=== PATIENT | male | born 1980 | race Caucasian/White ===

== ENCOUNTER 2020-12-25 14:04 | Inpatient (IN) | payer BC, SELFPAY ==
[2020-12-25] VITALS (18 sets, daily range): BP systolic 92–125; BP diastolic 60–79; PULSE 51–88; RESP 18–20; TEMP 36.6–36.7; O2SAT 95–100; BMI 23.9
--- NOTE | ~2020-12-25 | CT_ITS ---
EXAMINATION: CT brain wo con DATE: 12/25/2020 15:59 INDICATION: Altered mental status. Unresponsive. TECHNIQUE: Computed tomography (CT) of the head was performed without intravenous contrast. The mA wa s adjusted according to patient size. Iterative reconstruction technique was employed. The dose-lengt h product was 605.33 mGy-cm. COMPARISON: Head CT 12/22/2014 FINDINGS: There is no intracranial hemorrhage, acute infarction, or abnormal intracranial mass lesion . The ventricles are normal in size. The orbits are normal. There is mild mucosal thickening in the p aranasal sinuses. The mastoid air cells are normal. IMPRESSION: 1. Normal brain. Reviewed, dictated and finalized at location A. IMPRESSION: 1. Normal brain.
--- NOTE | ~2020-12-25 | XR_ITS ---
EXAMINATION: XR chest 1V portable EXAM DATE: 12/29/2020 15:42 INDICATION: Pneumonia. TECHNIQUE: Portable AP frontal chest x-ray was obtained. Comparison is made to prior examination from 12/28/2020. FINDINGS: Patient has been extubated. The lungs are clear. There are no pleural effusions. The card iomediastinal silhouette is within normal limits. There is no pneumothorax suspected. The bones and soft tissues are unremarkable. IMPRESSION: No acute cardiopulmonary findings. Reviewed, dictated and finalized at location B.
--- NOTE | ~2020-12-25 | XR_ITS ---
EXAMINATION: XR chest 1V portable INDICATION: Respiratory failure TECHNIQUE: Portable AP chest at 0523 hours COMPARISON: 12/27/2020 FINDINGS: The endotracheal tube ends approximately 7.0 cm above the chris. The nasogastric tube is f ollowed as far as the stomach. Its tip is beyond the inferior margin of the radiograph. Right basilar airspace opacities persist without significant change. There is no pleural effusion or pneumothorax. The cardiomediastinal silhouette is normal. IMPRESSION: 1. Unchanged right basilar airspace opacity, consistent with atelectasis versus pneumonia. 2. Endotracheal tube unchanged in position near the thoracic inlet. Reviewed, dictated and finalized at location A.
--- NOTE | ~2020-12-25 | CT_ITS ---
EXAMINATION: CT brain wo con DATE: 12/27/2020 14:28 INDICATION: Confusion TECHNIQUE: Computed tomography (CT) of the head was performed without intravenous contrast. Sagittal and coronal reconstructions were performed. The mA was adjusted according to patient size. Iterative reconstruction technique was employed. The dose-length product was 681.00 mGy-cm. COMPARISON: head CT dated 12/25/2020 FINDINGS: No acute intracranial hemorrhage, acute infarction or abnormal extra axial fluid collection. Ventricl es are normal and symmetric. No mass/mass effect. Course of the orogastric tube and endotracheal tube are seen extending across the oral cavity. Mucous retention cyst in the left maxillary sinus. The or bits and mastoid air cells are normal. IMPRESSION: 1. No acute intracranial process. Reviewed, dictated and finalized at location A.
--- NOTE | ~2020-12-25 | XR_ITS ---
EXAMINATION: XR abdomen NG/feed tube insert DATE: 12/25/2020 14:32 INDICATION: Orogastric tube placement. TECHNIQUE: A supine view of the abdomen was obtained. COMPARISON: None. FINDINGS: The lower abdomen is excluded. There are no dilated loops of bowel. The nasogastric tube ti p is in the stomach. IMPRESSION: 1. Nasogastric tube tip in the stomach. Reviewed, dictated and finalized at location A.
--- NOTE | ~2020-12-25 | XR_ITS ---
EXAMINATION: XR chest 1V portable DATE: 12/27/2020 05:54 INDICATION: Respiratory failure TECHNIQUE: frontal view of the chest was obtained. COMPARISON: Chest radiograph dated 12/25/2020 FINDINGS: Endotracheal tube tip at the thoracic inlet 8.6 cm above the chris. Nasogastric tube extends below the left hemidiaphragm with distal tip collimated off the study. Mild elevation of the right hemidiaphragm. Airspace opacity at the right lower lung zone. No pleural effusion or pneumothorax. The cardiomediastinal silhouette is normal. IMPRESSION: 1. Endotracheal tube tip at the thoracic inlet 8.6 cm above the chris. Recommend advancement by 6 cm . 2. Airspace opacity in the right lower lung zone which could represent atelectasis and/or pneumonia. Reviewed, dictated and finalized at location A. IMPRESSION: 1. Endotracheal tube tip at the thoracic inlet 8.6 cm above the chris. Recomme nd advancement by 6 cm. 2. Airspace opacity in the right lower lung zone which could represent atelecta sis and/or pneumonia.
--- NOTE | ~2020-12-25 | XR_ITS ---
EXAMINATION: XR chest ET placement DATE: 12/25/2020 14:32 INDICATION: Intubation. TECHNIQUE: A single frontal view of the chest was obtained. COMPARISON: None. FINDINGS: There is mild atelectasis in right lower lung zone. No pleural effusion or pneumothorax. Th e heart size is normal. The endotracheal tube tip is 5.5 cm above the chris. The nasogastric tube ti p is beyond the inferior margin of the radiograph, but at least to the stomach. IMPRESSION: 1. Mild atelectasis in right lower lung zone. Reviewed, dictated and finalized at location A.
--- NOTE | 2020-12-25 14:25 | PC.NURSE ---
Addendum entered by Zayra Minaya RN 12/25/20 15:13: Patient intubation tube marked at 24 Original Note: Etomidate given at 1412 Succ given at 1413 Patient intubated at 1416, measurement marked at 22.
--- NOTE | 2020-12-25 14:31 | ECG_ITS ---
Measurements Intervals [place] Rate: 75 P: 64 MI: 134 QRS: 19 QRSD: 95 T: 34 QT: 381 QTc: 426 Interpretive Statements SINUS RHYTHM WITH SINUS ARRHYTHMIA ATRIAL PREMATURE COMPLEX POSSIBLE LEFT ATRIAL ENLARGEMENT INCOMPLETE RIGHT BUNDLE BRANCH BLOCK BASELINE ARTIFACT- V3-V6 BORDERLINE ECG Electronically Signed On 12-25-2020 14:52:34 CDT by Lucas Agee D.O.
--- NOTE | 2020-12-25 14:32 | ED.OVERDOSE ---
HPI - Overdose General Chief Complaint: Overdose Stated Complaint: unresponsive Time Seen by Provider: 12/25/20 14:16 Source: EMS Mode of arrival: EMS Limitations: clinical condition History of Present Illness HPI Narrative: Patient is a 40-year-old male brought in by EMS after being found unresponsive. Patient was given Narcan 4 mg IV x1 and intranasal Narcan 2 mg x 1 to no effect according to EMS. Blood sugar was in the 140s per EMS. According to the patient was last seen working on his car around 10 AM, she came back to the garage and found him unresponsive at 1 PM. states that he had a similar episode 5 years ago when his dad , and claims that he has been feeling depressed this past week since it is the 5-year anniversary of his dad's . Related Data Allergies Allergy/AdvReac Type Severity Reaction Status Date / Time No Known Allergies Allergy Unknown Unverified 07/01/17 20:49 Review of Systems Review of Systems: All systems reviewed & are unremarkable except as noted in HPI and below ROS unobtainable: Yes unobtainable due to medical condition and unobtainable due to mental status [facility] Family History Family History Father Family history of lung cancer Mother Family history of malignant neoplasm of ovary Social History Social History Smoking status: Current every day smoker Smoking end date: 09/29/13 Alcohol intake: never Comments Past medical history: Depression, anxiety Exam Const: Other: Unresponsive HENMT: Head: normal to inspection, normocephalic and atraumatic Ears: hearing grossly normal bilaterally, TM normal on the right and TM normal on the left General nose exam: Normal external nose present, Normal nares present and No nasal discharge present Face and sinus: normal facial exam Mouth: Yes Normal oral and palatal mucosa present, Yes lip normal, Yes tongue normal and Yes oropharynx normal Throat: posterior oropharynx normal, tonsils normal and uvula midline Eyes: General: appearance normal, both eyes and all related structures Pupils: Equal, round and reactive pupils present Neck: Neck: normal visual inspection Chest: Chest palpation & inspection: normal inspection of the chest Resp: Other: Agonal respiration Cardio: Rate: regular rate Rhythm: regular rhythm GI: Inspection: normal to inspection GI Palp: No Rigid due to palpation Auscultation: normal bowel sounds : General: Yes no CVA tenderness Skin: General skin exam: normal color, no rashes or lesions noted, elasticity normal and turgor normal Neuro: Other: Unresponsive Extrem: General: normal to inspection and capillary refill normal Course Vital Signs Vital signs: Vital Signs Temperature 36.6 C 12/25/20 14:04 Pulse Rate 79 12/25/20 14:04 Respiratory Rate 18 12/25/20 14:04 Blood Pressure 125/79 12/25/20 14:04 Pulse Oximetry 99 12/25/20 14:04 Temperature 36.6 C 12/25/20 14:04 Pulse Rate 55 L 12/25/20 17:13 Respiratory Rate 20 12/25/20 17:13 Blood Pressure 105/73 12/25/20 17:13 Pulse Oximetry 100 12/25/20 17:13 Procedures Intubation Intubation #1: Intubation Date: 12/25/20 Intubation Time: 17:40 Time out performed: Yes sedative: Etomidate Mg Given: 20 paralytic: Succinylcholine Mg Given: 120 Laryngoscope: fiber optic video scope Tube Size (cm): 8.0 Method of Intubation: orotracheal Number of Attempts: 1 Tube Secured Depth (cm): 22 Tube Secured Location: teeth Tube Placement Confirmation: visualized tube passing through cords Patient Tolerated Procedure: well Intubation Complications: none MDM - Overdose MDM Narrative Medical decision making narrative: I reviewed his labs EKG and CT head. CBC shows elevated white count 17.1 this is due to s
[2020-12-25 14:43] LABS: Alveolar/Arterial O2 Gradient 457.3 mmHg; Arterial Blood Gas PEEP 5 cmH2O; Arterial Blood Gas Tidal Volume 470 ml; Arterial Blood Gas Vent Mode CMV; Arterial Blood Gas Ventilator rate 20 /MIN; Base Excess ABG -3.5 mEq/l (+/-2.0); Device VENTILATOR; Fractional Inspired Oxygen 100 %; HCO3 ABG 21.9 mEq/l (22.0-26.0); Modified Allen's Test Pass; Oxygen Content ABG 21.6 %vol (16.0-22.0); Oxygen Saturation ABG 99.4 % (95.0-100.0); Oxyhemoglobin 95.3 % THb (90.0-100.0); PCO2 ABG 40.9 mmHg (35.0-45.0); PO2 ABG 214.8 mmHg (80.0-100.0); PO2 FiO2 Ratio Arterial Blood 2.15 %; Site Drawn RIGHT RADIAL; Total Hemoglobin 15.8 g/dL (12.0-18.0); pH ABG 7.347 (7.350-7.450)
[2020-12-25 14:53] LABS: Basophils Percent Auto 0.2 % (0.2-1.2); Hematocrit 46.9 % (42.0-52.0); Hemoglobin 15.6 g/dL (14.0-18.0); Immature Granulocyte Absolute 0.08 K/mm3 (0.00-0.031); Immature Granulocyte Percent A 0.5 % (0-0.5); Lymphocytes Absolute Auto 0.77 K/mm3 (0.9-3.2); Lymphocytes Percent Auto 4.5 % (18.3-44.2); Mean Corpuscular HGB Conc 33.3 g/dl (32-36); Mean Corpuscular Hemoglobin 31.3 pg (26-34); Mean Corpuscular Volume 94.2 fl (80-100); Mean Platelet Volume 9.6 fl (7.4-10.4); Monocytes Absolute Auto 0.1 K/mm3 (0.1-0.6); Monocytes Percent Auto 0.6 % (2.6-8.5); Neutrophils Absolute Auto 16.1 K/mm3 (1.3-6.7); Neutrophils Percent Auto 94.2 % (45.5-73.1); Platelet Count Result 230 k/mm3 (150-375); Red Blood Count 4.98 M/mm3 (4.6-6.20); Red Cell Distribution Width 13.2 % (11.5-14.5); White Blood Count 17.1 K/mm3 (4.5-10.0)
[2020-12-25 14:57] LABS: Add Urine Microscopic? YES; Appearance Urine Clear (Clear); Bilirubin Urine Negative (Negative); Blood Urine 1+ (Negative); Color Urine Yellow (Yellow); Glucose Urine UA Negative (Negative); Ketones Urine Negative (Negative); Leukocyte Esterase Ur Negative LEU/UL (Negative); Mucus Urine Rare /lpf; Nitrate Urine Negative (Negative); Protein Urine Negative (Negative); RBC Urine 0-2 /hpf (0-2); Specific Grav Ur 1.015 (1.001-1.035); Urobilinogen Urine Negative mg/dL (<2.0); WBC Urine 0-3 /hpf
[2020-12-25] MEDS: PROPOFOL IV EMULSION 100 ML 2.48 MG IV CONT (14:58)
[2020-12-25 15:06] LABS: Ethanol < 10 mg/dL (<10); Lactic Acid Reflex 1.6 mmol/L (0.7-2.1)
[2020-12-25 15:08] LABS: Alanine Aminotransferase 40 U/L (4-50); Albumin Level 4.1 g/dL (3.5-5.1); Alkaline Phosphatase 70 U/L (38-126); Anion Gap 5 mmol/L (8-16); Aspartate Amino Transferase 35 U/L (17-59); Bilirubin,Total 0.5 mg/dL (0.2-1.3); Blood Urea Nitrogen 13 mg/dL (9-20); Calcium 8.6 mg/dL (8.4-10.2); Carbon Dioxide 28 mmol/L (22-30); Chloride 107 mmol/L (98-107); Creatine Kinase 99 U/L (55-170); Estimated CRCL calculation 87 ml/min; Estimated Glomerular Filt Rate > 60; Glucose 126 mg/dL (65-110); Potassium 3.8 mmol/L (3.4-5.0); Sodium 140 mmol/L (137-145)
[2020-12-25 15:13] LABS: Amphetamine Screen Urine Negative (Negative); Barbiturate Screen Urine Negative (Negative); Benzodiazepines Screen Urine Positive (Negative); Cannabinoid Screen Urine Positive (Negative); Cocaine Screen Urine Negative (Negative); Methadone Screen Urine Negative (Negative); Opiate Screen Urine Positive (Negative); Phencyclidine Screen Urine Negative (Negative)
[2020-12-25 15:19] LABS: Troponin I < 0.012 ng/mL (0.000-0.034)
[2020-12-25] MEDS: SODIUM CHLORIDE 0.9% IV 1,000 ML 999 ML IV CONT (15:22)
[2020-12-25 15:34] LABS: Acetaminophen 44 ug/mL (10-30); Salicylate < 1.0 mg/dL (2-20)
--- NOTE | 2020-12-25 19:19 | PM.IMHP ---
H&P: HPI History of Present Illness Date/Time: 12/25/20 19:19 this is a 40-year-old male patient who was brought into the ER via EMS after being found unresponsive. The patient was given Narcan 4 mg IV x1 an intranasal Narcan 2 mg x 1 with no affect according to the EMS. His blood sugar was in the 140s per EMS. According to the the patient was last seen working on his car around 10:00 a.m. she came into the carotid found him unresponsive around 1:00 p.m.. The stated that the patient had a similar episode 5 years ago when the patient's father and claims that he has been feeling depressed this past week since is a 5 year anniversary of the the father's . His white count was noted to be 17.1. Arterial blood gases pH 7.347, at PO2 214.8, bicarb 21.9. It appears that these ABGs were taken when the patient was on a ventilator. The patient had been intubated and placed on a ventilator in the emergency room. Hydraulic Repairer was consulted from the emergency room and accepted the patient into the ICU. Tylenol level elevated to 44. The patient was started on IV fluids and sedation per ED. patient is being admitted to inpatient services on the date of service of 12/25/2020. Chief Complaint: Unresponsive Review of Systems Review of Systems: All systems reviewed & are unremarkable except as noted in HPI and below Constitutional: Constitutional: Reports as per HPI and Reports no additional constitutional complaints Eyes: Eyes: Reports as per HPI and Reports no additional eye complaints ENT: Reports system reviewed and no additional complaints, except as documented and Reports Normal hearing present Cardiovascular: Cardiovascular: Reports no additional cardiovascular complaints Respiratory: Respiratory: Reports no additional respiratory complaints and Reports no additional respiratory complaints Gastrointestinal: Gastrointestinal: Reports as per HPI and Reports no additional gastrointestinal complaints Musculoskeletal: Musculoskeletal: Reports no additional musculoskeletal complaints Integumentary/Breasts: Skin/Breast: Reports system reviewed and no additional complaints, except as docu and Reports as per HPI Neurologic: Reports system reviewed and no additional complaints, except as documented, Reports as per HPI and Reports Normal hearing present Psychiatric: Psychiatric: Reports no additional psychiatric complaints and Reports as per HPI Endocrine: Endocrine: Reports no additional endocrine complaints Hematologic/Lymphatic: Hematologic/Lymphatic: Reports no additional hematologic/lymphatic complaints Allergic/Immunologic: Allergic/Immunologic: Reports no additional allergic/immunologic complaints PMF Past Medical History Medical History (Updated 12/25/20 @ 19:25 by Mariella Lyons NP) Chronic back pain Depression with anxiety Surgical History Surgical History (Updated 12/25/20 @ 19:25 by Mariella Lyons NP) H/O shoulder surgery Family History Family History Father Family history of lung cancer Mother Family history of malignant neoplasm of ovary Social History Social History (Updated 12/25/20 @ 19:27 by Mariella Lyons NP) Social History: The patient is and lives with his . The patient is listed as a full code. And has [employer] listed as his employer. The patient is a current smoker. Marijuana was found in his toxicology screen Smoking packs per day: 2 Smoking cigarettes per day: 40.0 Smoking status: Current every day smoker Tobacco type: cigarettes Smoking end date: 09/29/13 Alcohol intake: current Substance use: current Substance use type: marijuana Gender identity (if verbalized by the patient): Male Sexual Orientation (if Verbalized by the Patient): Straight or Heterosexual Spiritual care concerns: No Meds Home Medications and Allergies Home Medications Medication Instruct
[2020-12-25 19:34] LABS: Acetaminophen 21 ug/mL (10-30)
[2020-12-25 19:53] LABS: Troponin I < 0.012 ng/mL (0.000-0.034)
[2020-12-25] MEDS: SODIUM CHLORIDE 0.9% IV 1,000 ML 100 ML IV CONT (20:10)
--- NOTE | 2020-12-25 21:17 | PC.NURSE ---
Propofol infusing at 20 mcg/kg/min per dayshift RN and infusing as such. Had not been charted at 20 mcg/kg/min. Not increase by this RN.
[2020-12-25 21:38] LABS: Troponin I < 0.012 ng/mL (0.000-0.034)
[2020-12-26] VITALS (33 sets, daily range): BP systolic 93–110; BP diastolic 60–74; PULSE 44–120; RESP 20–23; TEMP 36.2–36.7; O2SAT 93–100
[2020-12-26 04:44] LABS: Alveolar/Arterial O2 Gradient 239.5 mmHg; Base Excess ABG 3.1 mEq/l (+/-2.0); Carboxyhemoglobin 0.1 % THb (0-2.0); Fractional Inspired Oxygen 50 %; HCO3 ABG 28.3 mEq/l (22.0-26.0); Methemoglobin ABG 0.4 %THb (0-1.5); Oxygen Content ABG 21.2 %vol (16.0-22.0); Oxygen Saturation ABG 93.4 % (95.0-100.0); Oxyhemoglobin 92.2 % THb (90.0-100.0); PCO2 ABG 44.9 mmHg (35.0-45.0); PO2 ABG 66.5 mmHg (80.0-100.0); PO2 FiO2 Ratio Arterial Blood 1.33 %; Reduced Hemoglobin 7.3 %THb (0-5.0); Total Hemoglobin 16.4 g/dL (12.0-18.0); pH ABG 7.417 (7.350-7.450)
[2020-12-26 04:46] LABS: Device VENTILATOR; Modified Allen's Test Pass; Site Drawn RIGHT RADIAL
[2020-12-26 04:47] LABS: Arterial Blood Gas PEEP 5 cmH2O; Arterial Blood Gas Tidal Volume 470 ml; Arterial Blood Gas Vent Mode CMV; Arterial Blood Gas Ventilator rate 20 /MIN
[2020-12-26 04:51] LABS: Basophils Percent Auto 0.2 % (0.2-1.2); Hemoglobin 15.5 g/dL (14.0-18.0); Immature Granulocyte Absolute 0.13 K/mm3 (0.00-0.031); Immature Granulocyte Percent A 0.6 % (0-0.5); Lymphocytes Absolute Auto 3.66 K/mm3 (0.9-3.2); Lymphocytes Percent Auto 18.1 % (18.3-44.2); Mean Corpuscular HGB Conc 33.7 g/dl (32-36); Mean Corpuscular Hemoglobin 31.2 pg (26-34); Mean Corpuscular Volume 92.6 fl (80-100); Neutrophils Absolute Auto 15.4 K/mm3 (1.3-6.7); Neutrophils Percent Auto 76.1 % (45.5-73.1); Platelet Count Result 221 k/mm3 (150-375); Red Blood Count 4.97 M/mm3 (4.6-6.20); Red Cell Distribution Width 13.3 % (11.5-14.5); White Blood Count 20.3 K/mm3 (4.5-10.0)
[2020-12-26 04:58] LABS: Alanine Aminotransferase 35 U/L (4-50); Albumin Level 3.7 g/dL (3.5-5.1); Alkaline Phosphatase 57 U/L (38-126); Anion Gap 6 mmol/L (8-16); Aspartate Amino Transferase 35 U/L (17-59); Bilirubin,Total 0.9 mg/dL (0.2-1.3); Blood Urea Nitrogen 20 mg/dL (9-20); Calcium 8.7 mg/dL (8.4-10.2); Carbon Dioxide 32 mmol/L (22-30); Chloride 108 mmol/L (98-107); Estimated CRCL calculation 95 ml/min; Estimated Glomerular Filt Rate > 60; Glucose 111 mg/dL (65-110); Magnesium 1.8 mg/dL (1.6-2.3); Potassium 3.9 mmol/L (3.4-5.0); Sodium 146 mmol/L (137-145)
[2020-12-26 05:06] LABS: Lactic Acid Reflex 4.1 mmol/L (0.7-2.1)
[2020-12-26] MEDS: SODIUM CHLORIDE 0.9% IV 1,000 ML 999 ML IV CONT ×2 (05:26→06:30)
[2020-12-26] MEDS: AMPICILLIN SULB 3 GM/NS 100 ML 3 GM/100 ML VIAL IVPB ×4 (06:21→23:23)
[2020-12-26] MEDS: SODIUM CHLORIDE 0.9% IV 1,000 ML 100 ML IV CONT (06:22)
[2020-12-26 07:48] LABS: Reflex Lactic Acid Yes or No Add Lactic
[2020-12-26] MEDS: DEXTROSE 5%/0.45% SOD CHL 1,000 ML 100 ML IV CONT ×2 (08:35→17:18)
[2020-12-26] MEDS: ENOXAPARIN 40 MG/0.4 ML SYRINGE SUB-Q (08:36)
[2020-12-26] MEDS: PANTOPRAZOLE SODIUM IV 40 MG VIAL IV PUSH ×2 (08:38→21:26)
--- NOTE | 2020-12-26 10:09 | WPDCNINT ---
Assessment and Plan Assessment and plan (1) Acute respiratory failure: Qualifiers: Respiratory failure complication: unspecified whether with hypoxia or hypercapnia Qualified Code(s): J96.00 - Acute respiratory failure, unspecified whether with hypoxia or hypercapnia Code(s): J96.00 - Acute respiratory failure, unspecified whether with hypoxia or hypercapnia Status: Acute Assessment and Plan: Acute Respiratory failure secondary to toxic encephalopathy and suspected aspiration pneumonia Continue full mechanical ventilation support to prevent hypoxemia/hypercarbia and end organ damage. ABG and PCXR reviewed and will repeat in am. Low tidal volume ventilation strategy to prevent volutrauma Will attempt SBT when mental status improves Continue Unasyn (2) Toxic encephalopathy: Code(s): G92 - Toxic encephalopathy Status: Acute Assessment and Plan: Secondary to drug overdose which appears to be poly substance Sedation holiday at this time as he was on propofol infusion Head CT was negative Check ammonia and TSH (3) Acute drug overdose: Qualifiers: Encounter type: initial encounter Injury intent: intentional self-harm Qualified Code(s): T50.902A - Poisoning by unspecified drugs, medicaments and biological substances, intentional self-harm, initial encounter Code(s): T50.901A - Poisoning by unspecified drugs, medicaments and biological substances, accidental (unintentional), initial encounter Status: Acute Assessment and Plan: His UDS was positive for opiates benzodiazepine and cannabinoids. Patient is on baclofen Xanax and venlafaxine His initial Tylenol level was 44 which after 4 hours had gone into normal range. His LFTs remain normal Electrolytes unremarkable Head CT was negative EKG showed normal QRS and QTC Continue supportive care IV fluids (4) Depression with anxiety: Code(s): F41.8 - Other specified anxiety disorders Status: Chronic Assessment and Plan: Patient will need evaluation post extubation (5) GI bleed: Code(s): K92.2 - Gastrointestinal hemorrhage, unspecified Status: Acute Assessment and Plan: Patient has blood-tinged output from his OG tube This could be from traumatic intubation Monitor hemoglobin and OG output IV PPI for now Additional Plan DVT prophylaxis -Lovenox Stress ulcer prophylaxis -PPI Nutrition -NPO Code Status - Full Code Total Critical Care Time -32 minutes Due to a high probability of clinically significant, life threatening deterioration, the patient required my highest level of preparedness to intervene emergently and I personally spent this critical care time directly and personally managing the patient. This critical care time included obtaining a history; examining the patient; pulse oximetry; ordering and review of studies; arranging urgent treatment with development of a management plan; evaluation of patient's response to treatment; frequent reassessment; and discussions with other providers. It was exclusive of separately billable procedures and treating other patients and teaching time. Please see Assessment and Plan section and the rest of the note for further information on patient assessment and treatment Newspaper Correspondent Consult Note Consult date: 12/26/20 Time Seen: 07:30 HPI: Aj Goldstein is a 40 year old male who was brought into the ER via EMS after being found unresponsive. The patient was given Narcan 4 mg IV x1 an intranasal Narcan 2 mg x 1 with no affect according to the EMS. His blood sugar was in the 140s per EMS. According to the the patient was last seen working on his car around 10:00 a.m. she came into the carotid found him unresponsive around 1:00 p.m.. The stated that the patient had a similar episode 5 years ago when the patient's father and claims that he has been feeling depressed this past week since is a 5 year anniversary of
--- NOTE | 2020-12-26 10:16 | ECG_ITS ---
Measurements Intervals [place] Rate: 48 P: 67 MS: 125 QRS: 28 QRSD: 94 T: 25 QT: 471 QTc: 423 Interpretive Statements SINUS BRADYCARDIA INCOMPLETE RIGHT BUNDLE BRANCH BLOCK BORDERLINE T WAVE ABNORMALITY- INFERIOR LEADS ABNORMAL ECG Electronically Signed On 12-26-2020 12:23:57 CDT by Lucas Agee D.O.
[2020-12-26] MEDS: MINERAL OIL/WHITE PETROLATUM OINTMENT 1 APPLIC EACH EYE ×2 (10:28→21:23)
[2020-12-26 11:02] LABS: Hematocrit 41.2 % (42.0-52.0); Hemoglobin 13.8 g/dL (14.0-18.0)
[2020-12-26 11:15] LABS: Ammonia 25 umol/L (9-30)
[2020-12-26 12:14] LABS: Thyroid Stimulating Hormone 0.731 uIU/mL (0.465-4.680)
[2020-12-26] MEDS: PROPOFOL IV EMULSION 100 ML 4.96 MG IV CONT (14:05)
--- NOTE | 2020-12-26 16:28 | PM.IMPN ---
Progress Note: A&P Assessment and Plan (1) Acute respiratory failure: Qualifiers: Respiratory failure complication: unspecified whether with hypoxia or hypercapnia Qualified Code(s): J96.00 - Acute respiratory failure, unspecified whether with hypoxia or hypercapnia Code(s): J96.00 - Acute respiratory failure, unspecified whether with hypoxia or hypercapnia Status: Acute (2) Acute drug overdose: Qualifiers: Encounter type: initial encounter Injury intent: intentional self-harm Qualified Code(s): T50.902A - Poisoning by unspecified drugs, medicaments and biological substances, intentional self-harm, initial encounter Code(s): T50.901A - Poisoning by unspecified drugs, medicaments and biological substances, accidental (unintentional), initial encounter Status: Acute (3) Depression with anxiety: Code(s): F41.8 - Other specified anxiety disorders Status: Chronic (4) Chronic back pain: Code(s): M54.9 - Dorsalgia, unspecified; G89.29 - Other chronic pain Status: Chronic Additional Plan 12/25/20 Patient's Tylenol level was 44. Were awaiting the neck is results. Will treat accordingly. Patient was positive for opiates, benzos and cannabinoids. Patient has a history of depression. The patient will need a crisis evaluation once he is awake and off the vent. The patient had been on hydrocodone at home. The patient had been on alprazolam at home. 12/26/20 Patient remains intubated and sedated Vent Management per Critical Care Tylenol level now within normal limits, LFTs within normal range Urine tox screen positive for benzodiazepines, opiates, marijuana Ammonia and TSH levels pending Patient remains critically ill requiring ICU level of care Subjective Date/time seen: 12/26/20 16:28 Intubated and sedated Review of Systems Review of Systems: All systems reviewed & are unremarkable except as noted in HPI and below Exam Narrative: GEN: Intubated sedated HEENT: ETT Neck: no JVD Heart: S1S2 increased rate Lungs: CTA B/L Abd: soft, NT, ND, bowel sounds normoactive Ext: no cyanosis, no clubbing, no edema Neuro: Sedated reflex is not evaluated Psych: Unable to evaluate Objective Data Vital Signs Vital Signs: Vital Signs - 24 hr 12/25/20 16:32 12/25/20 17:13 12/25/20 18:01 Temperature Pulse Rate 58 L 55 L 56 L Respiratory Rate 20 20 20 Blood Pressure 104/68 105/73 106/71 Pulse Oximetry 100 100 100 12/25/20 18:47 12/25/20 20:00 12/25/20 20:11 Temperature 98.0 F Pulse Rate 59 L 58 L 58 L Respiratory Rate 20 Blood Pressure 92/60 L Pulse Oximetry 99 97 97 12/25/20 21:00 12/25/20 22:00 12/25/20 22:01 Temperature Pulse Rate 57 L 53 L 53 L Respiratory Rate 20 20 Blood Pressure 94/61 L Pulse Oximetry 95 12/25/20 23:42 12/26/20 00:00 12/26/20 00:01 Temperature 97.8 F Pulse Rate 51 L 52 L 53 L Respiratory Rate 20 Blood Pressure 93/60 L Pulse Oximetry 97 96 12/26/20 01:53 12/26/20 02:00 12/26/20 04:00 Temperature 97.8 F Pulse Rate 50 L 51 L 47 L Respiratory Rate 20 20 Blood Pressure 94/64 L 101/67 Pulse Oximetry 95 93 95 12/26/20 04:26 12/26/20 06:00 12/26/20 07:45 Temperature Pulse Rate 63 50 L 44 L Respiratory Rate 20 Blood Pressure 106/61 Pulse Oximetry 96 99 100 12/26/20 08:00 12/26/20 10:00 12/26/20 11:11 Temperature 97.2 F L Pulse Rate 46 L 48 L 46 L Respiratory Rate 20 20 Blood Pressure 105/67 103/62 Pulse Oximetry 95 98 100 12/26/20 11:40 12/26/20 12:00 12/26/20 13:40 Temperature 98.1 F Pulse Rate 46 L 46 L Respiratory Rate 20 Blood Pressure 107/66 Pulse Oximetry 99 95 100 12/26/20 14:00 12/26/20 14:05 12/26/20 16:00 Temperature Pulse Rate 47 L 120 H 48 L Respiratory Rate 22 H 20 Blood Pressure 105/66 106/66 Pulse Oximetry 99 99 Intake/Output Intake/Output: Intake & Output 12/23/20 12/24/20 12/25/20 12/26/20 23:59 2
[2020-12-26] MEDS: PROPOFOL IV EMULSION 100 ML 17.35 MG IV CONT (21:56)
[2020-12-27] VITALS (34 sets, daily range): BP systolic 111–152; BP diastolic 71–97; PULSE 39–102; RESP 17–28; TEMP 35.6–37; O2SAT 98–100
[2020-12-27] MEDS: DEXTROSE 5%/0.45% SOD CHL 1,000 ML 100 ML IV CONT (03:30)
[2020-12-27] MEDS: PROPOFOL IV EMULSION 100 ML 17.35 MG IV CONT (03:30)
[2020-12-27 05:20] LABS: Hematocrit 40.9 % (42.0-52.0); Hemoglobin 13.2 g/dL (14.0-18.0); Mean Corpuscular HGB Conc 32.3 g/dl (32-36); Mean Corpuscular Hemoglobin 31.5 pg (26-34); Mean Corpuscular Volume 97.6 fl (80-100); Mean Platelet Volume 10.3 fl (7.4-10.4); Platelet Count Result 163 k/mm3 (150-375); Red Blood Count 4.19 M/mm3 (4.6-6.20); Red Cell Distribution Width 13.8 % (11.5-14.5); White Blood Count 12.8 K/mm3 (4.5-10.0)
[2020-12-27 05:21] LABS: Alanine Aminotransferase 27 U/L (4-50); Albumin Level 3.2 g/dL (3.5-5.1); Alkaline Phosphatase 51 U/L (38-126); Anion Gap 5 mmol/L (8-16); Aspartate Amino Transferase 30 U/L (17-59); Bilirubin,Total 0.4 mg/dL (0.2-1.3); Blood Urea Nitrogen 21 mg/dL (9-20); Calcium 8.3 mg/dL (8.4-10.2); Carbon Dioxide 28 mmol/L (22-30); Chloride 111 mmol/L (98-107); Estimated CRCL calculation 133 ml/min; Estimated Glomerular Filt Rate > 60; Glucose 104 mg/dL (65-110); Sodium 144 mmol/L (137-145)
[2020-12-27] MEDS: AMPICILLIN SULB 3 GM/NS 100 ML 3 GM/100 ML VIAL IVPB ×4 (05:24→22:15)
[2020-12-27 05:32] LABS: Alveolar/Arterial O2 Gradient 175.6 mmHg; Base Excess ABG 4.5 mEq/l (+/-2.0); Carboxyhemoglobin 0.3 % THb (0-2.0); Fractional Inspired Oxygen 40 %; HCO3 ABG 27.7 mEq/l (22.0-26.0); Methemoglobin ABG 0.4 %THb (0-1.5); Oxygen Content ABG 18.8 %vol (16.0-22.0); Oxyhemoglobin 93.1 % THb (90.0-100.0); PCO2 ABG 36.4 mmHg (35.0-45.0); PO2 ABG 67.7 mmHg (80.0-100.0); PO2 FiO2 Ratio Arterial Blood 1.69 %; Reduced Hemoglobin 6.2 %THb (0-5.0); Total Hemoglobin 14.4 g/dL (12.0-18.0); pH ABG 7.499 (7.350-7.450)
[2020-12-27 05:33] LABS: Arterial Blood Gas Ventilator rate 20 /MIN; Device VENTILATOR; Modified Allen's Test Pass; Site Drawn LEFT RADIAL
[2020-12-27 05:34] LABS: Arterial Blood Gas PEEP 5 cmH2O; Arterial Blood Gas Tidal Volume 470 ml; Arterial Blood Gas Vent Mode CMV
[2020-12-27] MEDS: MIDAZOLAM HCL (*CRX) 2 MG/2 ML VIAL 4 MG IV PUSH (06:37)
[2020-12-27] MEDS: dexmedeTOMIDine 400 MCG/100 ML 400 MCG/100 ML BAG IV CONT (06:37)
[2020-12-27] MEDS: PROPOFOL IV EMULSION 100 ML 12 MG IV CONT (08:32)
[2020-12-27] MEDS: POTASSIUM CHLORIDE 20 MEQ PACKET (FOR LIQUID) 40 MEQ FEED TUBE ×3 (08:33→19:35)
[2020-12-27] MEDS: ENOXAPARIN 40 MG/0.4 ML SYRINGE SUB-Q (08:33)
[2020-12-27] MEDS: PANTOPRAZOLE SODIUM IV 40 MG VIAL IV PUSH ×2 (08:33→20:36)
[2020-12-27] MEDS: MINERAL OIL/WHITE PETROLATUM OINTMENT 1 APPLIC EACH EYE ×2 (08:34→20:36)
--- NOTE | 2020-12-27 09:34 | WPDINTPN ---
Progress Note: A&P Assessment and Plan (1) Acute respiratory failure: Qualifiers: Respiratory failure complication: unspecified whether with hypoxia or hypercapnia Qualified Code(s): J96.00 - Acute respiratory failure, unspecified whether with hypoxia or hypercapnia Code(s): J96.00 - Acute respiratory failure, unspecified whether with hypoxia or hypercapnia Status: Acute Assessment and Plan: Acute Respiratory failure secondary to toxic encephalopathy and suspected aspiration pneumonia Continue full mechanical ventilation support to prevent hypoxemia/hypercarbia and end organ damage. ABG and PCXR reviewed and will repeat in am. Low tidal volume ventilation strategy to prevent volutrauma Will place patient on sedation holiday and attempted breathing trial this morning Continue Unasyn (2) Toxic encephalopathy: Code(s): G92 - Toxic encephalopathy Status: Acute Assessment and Plan: Secondary to drug overdose which appears to be poly substance Sedation holiday at this time as he was on propofol infusion Head CT was negative Normal ammonia and TSH (3) Acute drug overdose: Qualifiers: Encounter type: initial encounter Injury intent: intentional self-harm Qualified Code(s): T50.902A - Poisoning by unspecified drugs, medicaments and biological substances, intentional self-harm, initial encounter Code(s): T50.901A - Poisoning by unspecified drugs, medicaments and biological substances, accidental (unintentional), initial encounter Status: Acute Assessment and Plan: His UDS was positive for opiates benzodiazepine and cannabinoids. Patient is on baclofen Xanax and venlafaxine His initial Tylenol level was 44 which after 4 hours had gone into normal range. His LFTs remain normal Electrolytes unremarkable Head CT was negative Repeat EKG showed normal QRS and QTC Continue supportive care IV fluids (4) Depression with anxiety: Code(s): F41.8 - Other specified anxiety disorders Status: Chronic Assessment and Plan: Patient will need evaluation post extubation (5) GI bleed: Code(s): K92.2 - Gastrointestinal hemorrhage, unspecified Status: Acute Assessment and Plan: Patient had blood-tinged output from his OG tube on presentation Likely secondary to traumatic intubation or gastritis Appears to have cleared now as not much came out overnight Hemoglobin has been stable since yesterday. Monitor hemoglobin and OG output IV PPI for now (6) Electrolyte abnormality: Code(s): E87.8 - Other disorders of electrolyte and fluid balance, not elsewhere classified Status: Acute Assessment and Plan: Replace low potassium Additional Plan DVT prophylaxis -Lovenox Stress ulcer prophylaxis -PPI Nutrition -will start tube feeds if unable to extubate today Code Status - Full Code Total Critical Care Time -30 minutes Due to a high probability of clinically significant, life threatening deterioration, the patient required my highest level of preparedness to intervene emergently and I personally spent this critical care time directly and personally managing the patient. This critical care time included obtaining a history; examining the patient; pulse oximetry; ordering and review of studies; arranging urgent treatment with development of a management plan; evaluation of patient's response to treatment; frequent reassessment; and discussions with other providers. It was exclusive of separately billable procedures and treating other patients and teaching time. Please see Assessment and Plan section and the rest of the note for further information on patient assessment and treatment Subjective Date/time seen: 12/27/20 Overnight events reviewed.Afebrile Continues to be on mechanical ventilation Continues to be on sedation with propofol. 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
[2020-12-27] MEDS: PROPOFOL IV EMULSION 100 ML 24 MG IV CONT ×3 (15:01→22:05)
--- NOTE | 2020-12-27 17:04 | PM.IMPN ---
Progress Note: A&P Assessment and Plan (1) Acute respiratory failure: Qualifiers: Respiratory failure complication: unspecified whether with hypoxia or hypercapnia Qualified Code(s): J96.00 - Acute respiratory failure, unspecified whether with hypoxia or hypercapnia Code(s): J96.00 - Acute respiratory failure, unspecified whether with hypoxia or hypercapnia Status: Acute (2) Acute drug overdose: Qualifiers: Encounter type: initial encounter Injury intent: intentional self-harm Qualified Code(s): T50.902A - Poisoning by unspecified drugs, medicaments and biological substances, intentional self-harm, initial encounter Code(s): T50.901A - Poisoning by unspecified drugs, medicaments and biological substances, accidental (unintentional), initial encounter Status: Acute (3) Depression with anxiety: Code(s): F41.8 - Other specified anxiety disorders Status: Chronic (4) Chronic back pain: Code(s): M54.9 - Dorsalgia, unspecified; G89.29 - Other chronic pain Status: Chronic (5) GI bleed: Code(s): K92.2 - Gastrointestinal hemorrhage, unspecified Status: Acute (6) Electrolyte abnormality: Code(s): E87.8 - Other disorders of electrolyte and fluid balance, not elsewhere classified Status: Acute (7) Pneumonia, aspiration: Code(s): J69.0 - Pneumonitis due to inhalation of food and vomit Status: Acute Assessment and Plan: suspected (8) Toxic encephalopathy: Code(s): G92 - Toxic encephalopathy Status: Acute (9) Polysubstance abuse: Code(s): F19.10 - Other psychoactive substance abuse, uncomplicated Status: Acute Additional Plan 12/25/20 Patient's Tylenol level was 44. Were awaiting the neck is results. Will treat accordingly. Patient was positive for opiates, benzos and cannabinoids. Patient has a history of depression. The patient will need a crisis evaluation once he is awake and off the vent. The patient had been on hydrocodone at home. The patient had been on alprazolam at home. 12/26/20 Patient remains intubated and sedated Vent Management per Critical Care Tylenol level now within normal limits, LFTs within normal range Urine tox screen positive for benzodiazepines, opiates, marijuana Ammonia and TSH levels pending Patient remains critically ill requiring ICU level of care 12/27/20 pt remains intubated pending sedation vacation and weaning cont Unasyn IV PPI pt remains critically ill requiring ICU level of care Subjective Date/time seen: 12/27/20 17:04 intubated and sedated Exam Narrative: GEN: Intubated sedated HEENT: ETT Neck: no JVD Heart: S1S2 increased rate Lungs: CTA B/L Abd: soft, NT, ND, bowel sounds normoactive Ext: no cyanosis, no clubbing, no edema Neuro: Sedated reflex is not evaluated Psych: Unable to evaluate Objective Data Vital Signs Vital Signs: Vital Signs - 24 hr 12/26/20 18:00 12/26/20 18:36 12/26/20 19:35 Temperature Pulse Rate 48 L 44 L 88 Respiratory Rate 20 22 H Blood Pressure 102/63 Pulse Oximetry 98 12/26/20 19:40 12/26/20 19:55 12/26/20 20:00 Temperature Pulse Rate 76 59 L 54 L Respiratory Rate 23 H 20 Blood Pressure Pulse Oximetry 12/26/20 20:50 12/26/20 20:55 12/26/20 21:00 Temperature Pulse Rate 82 67 55 L Respiratory Rate 21 H 20 20 Blood Pressure Pulse Oximetry 12/26/20 21:08 12/26/20 21:20 12/26/20 21:30 Temperature 97.4 F L Pulse Rate 50 L 51 L 47 L Respiratory Rate 20 Blood Pressure 108/66 Pulse Oximetry 99 99 99 12/26/20 21:56 12/26/20 22:00 12/26/20 23:58 Temperature Pulse Rate 49 L 49 L 46 L Respiratory Rate 20 20 Blood Pressure 110/74 Pulse Oximetry 100 100 12/27/20 00:00 12/27/20 00:50 12/27/20 02:00 Temperature 97.3 F L Pulse Rate 47 L 47 L 46 L Respiratory Rate 20 20 Blood Pressure 111/71 121/81 Pulse Oximetry 98 100
[2020-12-28] VITALS (24 sets, daily range): BP systolic 113–152; BP diastolic 80–99; PULSE 45–103; RESP 15–24; TEMP 36.5–36.7; O2SAT 95–100; BMI 25.6
[2020-12-28] MEDS: PROPOFOL IV EMULSION 100 ML 24 MG IV CONT ×2 (01:53→05:55)
[2020-12-28] MEDS: dexmedeTOMIDine 400 MCG/100 ML 400 MCG/100 ML BAG IV CONT (04:21)
[2020-12-28] MEDS: AMPICILLIN SULB 3 GM/NS 100 ML 3 GM/100 ML VIAL IVPB (04:21)
[2020-12-28 04:35] LABS: Hematocrit 44.3 % (42.0-52.0); Hemoglobin 14.9 g/dL (14.0-18.0); Mean Corpuscular HGB Conc 33.6 g/dl (32-36); Mean Corpuscular Hemoglobin 32.2 pg (26-34); Mean Corpuscular Volume 95.7 fl (80-100); Mean Platelet Volume 9.9 fl (7.4-10.4); Platelet Count Result 158 k/mm3 (150-375); Red Blood Count 4.63 M/mm3 (4.6-6.20); Red Cell Distribution Width 13.6 % (11.5-14.5); White Blood Count 10.6 K/mm3 (4.5-10.0)
[2020-12-28 04:49] LABS: Alanine Aminotransferase 35 U/L (4-50); Albumin Level 3.4 g/dL (3.5-5.1); Alkaline Phosphatase 59 U/L (38-126); Anion Gap 9 mmol/L (8-16); Aspartate Amino Transferase 44 U/L (17-59); Bilirubin,Total 0.7 mg/dL (0.2-1.3); Blood Urea Nitrogen 17 mg/dL (9-20); Calcium 8.8 mg/dL (8.4-10.2); Carbon Dioxide 26 mmol/L (22-30); Chloride 106 mmol/L (98-107); Estimated CRCL calculation 117 ml/min; Estimated Glomerular Filt Rate > 60; Glucose 105 mg/dL (65-110); Magnesium 2.1 mg/dL (1.6-2.3); Potassium 3.6 mmol/L (3.4-5.0); Sodium 141 mmol/L (137-145)
[2020-12-28 04:56] LABS: Alveolar/Arterial O2 Gradient 77.3 mmHg; Base Excess ABG 1.5 mEq/l (+/-2.0); Carboxyhemoglobin 0.3 % THb (0-2.0); Fractional Inspired Oxygen 30 %; HCO3 ABG 25.9 mEq/l (22.0-26.0); Methemoglobin ABG 0.3 %THb (0-1.5); Oxygen Content ABG 19.5 %vol (16.0-22.0); Oxyhemoglobin 95.6 % THb (90.0-100.0); PCO2 ABG 40.2 mmHg (35.0-45.0); PO2 ABG 89.4 mmHg (80.0-100.0); PO2 FiO2 Ratio Arterial Blood 2.98 %; Reduced Hemoglobin 3.8 %THb (0-5.0); Total Hemoglobin 14.5 g/dL (12.0-18.0); pH ABG 7.427 (7.350-7.450)
[2020-12-28 04:57] LABS: Device VENTILATOR; Modified Allen's Test Pass; Site Drawn RIGHT RADIAL
[2020-12-28 04:58] LABS: Arterial Blood Gas PEEP 5 cmH2O; Arterial Blood Gas Vent Mode CMV; Arterial Blood Gas Ventilator rate 20 /MIN
--- NOTE | 2020-12-28 08:48 | WPDINTPN ---
Progress Note: A&P Assessment and Plan (1) Acute respiratory failure: Qualifiers: Respiratory failure complication: unspecified whether with hypoxia or hypercapnia Qualified Code(s): J96.00 - Acute respiratory failure, unspecified whether with hypoxia or hypercapnia Code(s): J96.00 - Acute respiratory failure, unspecified whether with hypoxia or hypercapnia Status: Acute Assessment and Plan: Acute Respiratory failure secondary to toxic encephalopathy and suspected aspiration pneumonia ETT was adjusted this morning after review of chest x-ray Patient now is awake and following commands. Will extubate and monitor Continue Unasyn (2) Toxic encephalopathy: Code(s): G92 - Toxic encephalopathy Status: Acute Assessment and Plan: Secondary to drug overdose which appears to be poly substance Sedation holiday at this time as he was on propofol infusion Head CT was negative Normal ammonia and TSH Improved and patient is today following commands on sedation holiday (3) Acute drug overdose: Qualifiers: Encounter type: initial encounter Injury intent: intentional self-harm Qualified Code(s): T50.902A - Poisoning by unspecified drugs, medicaments and biological substances, intentional self-harm, initial encounter Code(s): T50.901A - Poisoning by unspecified drugs, medicaments and biological substances, accidental (unintentional), initial encounter Status: Acute Assessment and Plan: His UDS was positive for opiates benzodiazepine and cannabinoids. Patient is on baclofen Xanax and venlafaxine His initial Tylenol level was 44 which after 4 hours had gone into normal range. His LFTs remain normal Electrolytes unremarkable Head CT was negative Repeat EKG showed normal QRS and QTC Continue supportive care IV fluids (4) Depression with anxiety: Code(s): F41.8 - Other specified anxiety disorders Status: Chronic Assessment and Plan: Since patient is now extubated I will place a sitter at bedside as I do not know if the drug overdose was accidental or suicidal. Patient will need psych evaluation once medically stable (5) GI bleed: Code(s): K92.2 - Gastrointestinal hemorrhage, unspecified Status: Acute Assessment and Plan: Patient had blood-tinged output from his OG tube on presentation Likely secondary to traumatic intubation or gastritis Appears to have cleared now as not much came out overnight Hemoglobin has been stable since yesterday. Monitor hemoglobin and OG output IV PPI for now (6) Electrolyte abnormality: Code(s): E87.8 - Other disorders of electrolyte and fluid balance, not elsewhere classified Status: Acute Assessment and Plan: Replace low potassium Additional Plan DVT prophylaxis -Lovenox Stress ulcer prophylaxis -PPI Code Status - Full Code Total Critical Care Time -35 minutes Due to a high probability of clinically significant, life threatening deterioration, the patient required my highest level of preparedness to intervene emergently and I personally spent this critical care time directly and personally managing the patient. This critical care time included obtaining a history; examining the patient; pulse oximetry; ordering and review of studies; arranging urgent treatment with development of a management plan; evaluation of patient's response to treatment; frequent reassessment; and discussions with other providers. It was exclusive of separately billable procedures and treating other patients and teaching time. Please see Assessment and Plan section and the rest of the note for further information on patient assessment and treatment Subjective Date/time seen: 12/28/20 Overnight events reviewed Afebrile Continues to be on mechanical ventilation Continues to be on sedation Vitals acceptable Review of Systems Review of Systems: ROS unobtainable: Yes unobtainable due to endotr
--- NOTE | 2020-12-28 09:18 | PC.NURSE ---
0855-PATIENT EXTUBATED WITHOUT COMPLICATIONS. PLACED ON 2L/NC. SITTER AT BEDSIDE.
[2020-12-28] MEDS: POTASSIUM CHLORIDE 20 MEQ PACKET (FOR LIQUID) 40 MEQ FEED TUBE (09:48)
[2020-12-28] MEDS: PANTOPRAZOLE SODIUM IV 40 MG VIAL IV PUSH (09:49)
[2020-12-28] MEDS: ENOXAPARIN 40 MG/0.4 ML SYRINGE SUB-Q (09:49)
--- NOTE | 2020-12-28 11:14 | PC.NURSE ---
1100- CALLED. UPDATED ON PATIENT'S CONDITION. ALL QUESTIONS ANSWERED.
--- NOTE | 2020-12-28 11:20 | PM.IMPN ---
Progress Note: A&P Assessment and Plan (1) Acute respiratory failure: Qualifiers: Respiratory failure complication: unspecified whether with hypoxia or hypercapnia Qualified Code(s): J96.00 - Acute respiratory failure, unspecified whether with hypoxia or hypercapnia Code(s): J96.00 - Acute respiratory failure, unspecified whether with hypoxia or hypercapnia Status: Acute Assessment and Plan: Acute Respiratory failure secondary to toxic encephalopathy and suspected aspiration pneumonia. Patient was able to be successfully extubated earlier this morning. He has been weaned to room air. Continue to monitor mental status. Continue IV antibiotics. (2) Pneumonia, aspiration: Code(s): J69.0 - Pneumonitis due to inhalation of food and vomit Status: Acute Assessment and Plan: Chest x-ray on admission showing mild atelectasis in the right [place] [address]. Patient remaining afebrile. He started on Unasyn on 12/26/2020 for aspiration pneumonia. Chest x-ray reviewed personally today showed right bibasilar airspace opacities. No BCx drawn but sputum cx growing H. flu. Patient has been weaned to room air. Continue antibiotics. (3) Acute drug overdose: Qualifiers: Encounter type: initial encounter Injury intent: intentional self-harm Qualified Code(s): T50.902A - Poisoning by unspecified drugs, medicaments and biological substances, intentional self-harm, initial encounter Code(s): T50.901A - Poisoning by unspecified drugs, medicaments and biological substances, accidental (unintentional), initial encounter Status: Acute Assessment and Plan: CT of the brain was negative. UDS was positive for opiates, benzodiazepine and cannabinoids. Patient is on baclofen Xanax and venlafaxine on admission. His initial Tylenol level was 44 which after 4 hours had gone into normal range. His LFTs remain normal. Repeat EKG showed normal QRS and QTC. Continue supportive care (4) Toxic encephalopathy: Code(s): G92 - Toxic encephalopathy Status: Acute Assessment and Plan: CT of the brain was negative. Ammonia and TSH levels were normal. Secondary to drug overdose which appears to be poly substance use. Sedation has been weaned patient was extubated this morning. Mental status still not back to baseline felt related to residual sedation medications. Continue to monitor. (5) Depression with anxiety: Code(s): F41.8 - Other specified anxiety disorders Status: Chronic Assessment and Plan: Patient is now extubated. Effexor on hold. Unclear if drug overdose was accidental or intentional. Continue to hold Effexor at this time. Consult Crisis once patient is more awake and alert. (6) GI bleed: Code(s): K92.2 - Gastrointestinal hemorrhage, unspecified Status: Acute Assessment and Plan: Patient had blood-tinged output from his OG tube on presentation likely secondary to traumatic intubation or gastritis. OG output had cleared. Hemoglobin has been stable. Continue PPI therapy. (7) Electrolyte abnormality: Code(s): E87.8 - Other disorders of electrolyte and fluid balance, not elsewhere classified Status: Acute Assessment and Plan: Electrolytes normal now. Continue to monitor intermittently. (8) Chronic back pain: Code(s): M54.9 - Dorsalgia, unspecified; G89.29 - Other chronic pain Status: Chronic Assessment and Plan: Patient takes chronic baclofen and [place]. These medications are on hold. Additional Plan DVT prophylaxis -Lovenox Stress ulcer prophylaxis -PPI Code Status - Full Code Subjective Date/time seen: 12/28/20 11:20 Interval history: 40yo male with depression here after being found down from an acute drug overdose. Assuming care. Chart reviewed. Patient was found down and unresponsive by his . This happen
--- NOTE | 2020-12-28 12:00 | PC.NURSE ---
PATIENT CONTINUES TO TAKE MONITOR OFF AND GET OUT OF BED. EXPLAINED HE NEEDS TO STAY IN BED FOR SAFETY REASONS. BACK IN BED. BED ALARM ON. SITTER AT BEDSIDE.
--- NOTE | 2020-12-28 14:06 | PC.NURSE ---
PATIENT CONTINUES TO CLIMB OUT OF BED WITHOUT ASSISTANCE. UNSTEADY ON HIS FEET. BACK IN BED WITH BED ALARM ON. WILL NOT LEAVE MONITOR LEADS ON.
[2020-12-28] MEDS: dexmedeTOMIDine 400 MCG/100 ML 400 MCG/100 ML BAG 14 MCG IV CONT (20:12)
[2020-12-29] VITALS (12 sets, daily range): BP systolic 138–166; BP diastolic 78–96; PULSE 52–117; RESP 15–166; TEMP 36.6–36.7; O2SAT 95–98
[2020-12-29] MEDS: dexmedeTOMIDine 400 MCG/100 ML 400 MCG/100 ML BAG 14 MCG IV CONT (02:52)
[2020-12-29 04:53] LABS: Hematocrit 44.8 % (42.0-52.0); Hemoglobin 15.1 g/dL (14.0-18.0); Mean Corpuscular HGB Conc 33.7 g/dl (32-36); Mean Corpuscular Hemoglobin 31.8 pg (26-34); Mean Corpuscular Volume 94.3 fl (80-100); Platelet Count Result 190 k/mm3 (150-375); Red Blood Count 4.75 M/mm3 (4.6-6.20); White Blood Count 13.4 K/mm3 (4.5-10.0)
[2020-12-29 05:11] LABS: Alanine Aminotransferase 68 U/L (4-50); Albumin Level 4.2 g/dL (3.5-5.1); Alkaline Phosphatase 74 U/L (38-126); Anion Gap 12 mmol/L (8-16); Aspartate Amino Transferase 84 U/L (17-59); Bilirubin,Total 1.7 mg/dL (0.2-1.3); Blood Urea Nitrogen 14 mg/dL (9-20); Carbon Dioxide 26 mmol/L (22-30); Chloride 100 mmol/L (98-107); Estimated CRCL calculation 117 ml/min; Estimated Glomerular Filt Rate > 60; Glucose 96 mg/dL (65-110); Magnesium 1.9 mg/dL (1.6-2.3); Potassium 3.3 mmol/L (3.4-5.0); Sodium 138 mmol/L (137-145)
[2020-12-29] MEDS: POTASSIUM CHLORIDE 20 MEQ TABLET 40 MEQ PO (08:39)
[2020-12-29] MEDS: ENOXAPARIN 40 MG/0.4 ML SYRINGE SUB-Q (08:40)
[2020-12-29] MEDS: PANTOPRAZOLE SODIUM IV 40 MG VIAL IV PUSH (08:40)
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
[2020-12-29 09:47] LABS: Methylmalonic Acid 147 nmol/L (87-318)
[2020-12-29] MEDS: AMOXICILLIN/CLAVULANATE K 875-125 MG TAB 1 TABLET PO (10:27)
--- NOTE | 2020-12-29 11:55 | PCDIET ---
Nutrition Follow-Up Complete: Nutrition Diagnosis: Inadequate oral intake related to oral intubation as evidenced by need for enteral feeding. Nutrition Goal: Patient to meet estimated nutritional needs. Goal in progress. Patient extubated on regular diet. Reports tolerating breakfast and ate almost everything on tray. Last recorded weight is 85.7 kg which is stable with last review. Bowel Motility: BM x 2 today. Labs Reviewed: WBC (13.4), K (3.3) Meds Noted: Unasyn, Precedex, Protonix, KCl Additional Notes: No skin breakdown documented. Will continue to monitor with same goal. Nutrition Monitoring and Evaluation: Follow up every 5 days.
[2020-12-29 16:24] LABS: Hematocrit 43.8 % (42.0-52.0); Mean Corpuscular HGB Conc 34.2 g/dl (32-36); Mean Corpuscular Hemoglobin 31.8 pg (26-34); Platelet Count Result 197 k/mm3 (150-375); Red Blood Count 4.71 M/mm3 (4.6-6.20); Red Cell Distribution Width 13.1 % (11.5-14.5); White Blood Count 12.9 K/mm3 (4.5-10.0)
[2020-12-29 17:42] LABS: EDCOVIDSCREEN Negative (Negative)
--- NOTE | 2020-12-29 18:50 | PM.IMPN ---
Progress Note: A&P Assessment and Plan (1) Acute respiratory failure: Qualifiers: Respiratory failure complication: unspecified whether with hypoxia or hypercapnia Qualified Code(s): J96.00 - Acute respiratory failure, unspecified whether with hypoxia or hypercapnia Code(s): J96.00 - Acute respiratory failure, unspecified whether with hypoxia or hypercapnia Status: Acute Assessment and Plan: Acute Respiratory failure secondary to toxic encephalopathy and suspected aspiration pneumonia. Patient was able to be successfully extubated 12/28. He has been weaned to room air. Continue to monitor mental status. Continue antibiotics. (2) Pneumonia, aspiration: Code(s): J69.0 - Pneumonitis due to inhalation of food and vomit Status: Acute Assessment and Plan: Chest x-ray on admission showing mild atelectasis in the right [place] [address]. Patient remaining afebrile. He started on Unasyn on 12/26/2020 for aspiration pneumonia. Chest x-ray reviewed personally today and is clear. No BCx drawn but sputum cx growing H. flu. Patient has been weaned to room air. Unasyn changed to Augmentin. (3) Acute drug overdose: Qualifiers: Encounter type: initial encounter Injury intent: intentional self-harm Qualified Code(s): T50.902A - Poisoning by unspecified drugs, medicaments and biological substances, intentional self-harm, initial encounter Code(s): T50.901A - Poisoning by unspecified drugs, medicaments and biological substances, accidental (unintentional), initial encounter Status: Acute Assessment and Plan: CT of the brain was negative. UDS was positive for opiates, benzodiazepine and cannabinoids. Patient is on baclofen, [place], Xanax and venlafaxine on admission. His initial Tylenol level was 44 which after 4 hours had gone into normal range. His LFTs were normal but more elvated today possibly related to the Unasyn. Repeat EKG showed normal QRS and QTC. Continue supportive care. Unasyn stopped - repeat LFTs (4) Toxic encephalopathy: Code(s): G92 - Toxic encephalopathy Status: Acute Assessment and Plan: CT of the brain was negative. Ammonia and TSH levels were normal. Secondary to drug overdose which appears to be poly substance use. Mental status better but still not back to baseline felt related to residual sedation medications or withdrawal from home medications? Continue to monitor. (5) Depression with anxiety: Code(s): F41.8 - Other specified anxiety disorders Status: Chronic Assessment and Plan: Patient more awake and now agitated at times with paranoia. Effexor on hold. Unclear if drug overdose was accidental or intentional. Continue to hold Effexor at this time. Crisis has evaluated the patient with plans for inpatient psych placement. (6) GI bleed: Code(s): K92.2 - Gastrointestinal hemorrhage, unspecified Status: Acute Assessment and Plan: Patient had blood-tinged output from his OG tube on presentation likely secondary to traumatic intubation or gastritis. OG output had cleared. Hemoglobin has been stable. Continue PPI therapy. (7) Electrolyte abnormality: Code(s): E87.8 - Other disorders of electrolyte and fluid balance, not elsewhere classified Status: Acute Assessment and Plan: Potassium slightly low today. This was replaced. Continue to follow. (8) Chronic back pain: Code(s): M54.9 - Dorsalgia, unspecified; G89.29 - Other chronic pain Status: Chronic Assessment and Plan: Patient takes chronic baclofen and [place]. These medications are on hold. Subjective Date/time seen: 12/29/20 18:50 Interval history: 40yo male with depression here after being found down from an acute drug overdose. More belligerent overnight. Patient more paranoid as well. He believes his is sleeping with the se
--- NOTE | 2020-12-29 19:36 | PC.NURSE ---
Report given to NICOL Mann at [facility].
--- NOTE | 2020-12-30 18:04 | PM.TDS ---
Transfer Discharge Sum: Prov Provider Date of admission: 12/25/20 17:28 Primary care physician: [employer]ICIAN Admitting clinician: Malena Joshua MD Consults: 12/25/20 Consult to Physician Routine Comment: Consulting Provider: Vahid Mckeon anthropology faculty member/MD group to consult: ELSIE Reason for consultation: ICU ADMISSION Has provider been notified: Yes Discharging clinician: Reuben Ocampo Anticipated date of transfer: 12/29/20 Receiving physician/facility: Date of Service 12/29/20 DS: Admitting Diagnosis Admitting Diagnosis Altered mental status DS: Discharge Diagnosis Discharge Diagnosis (1) Acute respiratory failure: Qualifiers: Respiratory failure complication: unspecified whether with hypoxia or hypercapnia Qualified Code(s): J96.00 - Acute respiratory failure, unspecified whether with hypoxia or hypercapnia Code(s): J96.00 - Acute respiratory failure, unspecified whether with hypoxia or hypercapnia Status: Acute Assessment and Plan: Patient with acute Respiratory failure secondary to toxic encephalopathy and suspected aspiration pneumonia requiring intubation on admission. Patient was able to be successfully extubated 12/28. He has been weaned to room air. (2) Pneumonia, aspiration: Code(s): J69.0 - Pneumonitis due to inhalation of food and vomit Status: Acute Assessment and Plan: Chest x-ray on admission showing mild atelectasis in the right [place] [id number]. He started on Unasyn on 12/26/2020 for aspiration pneumonia. After extubation, a repeat chest x-ray was clear. No BCx drawn but sputum cx growing H. flu. Patient was weaned to room air. Unasyn was changed to Augmentin. (3) Acute drug overdose: Qualifiers: Encounter type: initial encounter Injury intent: intentional self-harm Qualified Code(s): T50.902A - Poisoning by unspecified drugs, medicaments and biological substances, intentional self-harm, initial encounter Code(s): T50.901A - Poisoning by unspecified drugs, medicaments and biological substances, accidental (unintentional), initial encounter Status: Acute Assessment and Plan: CT of the brain was negative. UDS was positive for opiates, benzodiazepine and cannabinoids. Patient is on baclofen, [place], Xanax and venlafaxine at home. EKG showed normal QRS and QTC. His initial Tylenol level was 44 which after 4 hours had gone into normal range. His LFTs were normal but became elevated possibly related to the Unasyn. Unasyn was changed to Augmentin. (4) Toxic encephalopathy: Code(s): G92 - Toxic encephalopathy Status: Acute Assessment and Plan: CT of the brain was negative. Ammonia and TSH levels were normal. Encephalopathy secondary to drug overdose which appears to be poly substance use. Mental status better but still not back to baseline felt related to residual sedation medications and/or withdrawal from home medications. (5) Depression with anxiety: Code(s): F41.8 - Other specified anxiety disorders Status: Chronic Assessment and Plan: Patient now more awake but agitated at times with paranoia. Effexor on hold. Unclear if drug overdose was accidental or intentional. Continue to hold Effexor at this time. Crisis evaluated the patient and recommended inpatient psych placement. (6) GI bleed: Code(s): K92.2 - Gastrointestinal hemorrhage, unspecified Status: Acute Assessment and Plan: Patient had blood-tinged output from his OG tube on presentation likely secondary to traumatic intubation or gastritis. OG output cleared. Hemoglobin remained stable. He was treated with PPI therapy. (7) Electrolyte abnormality: Code(s): E87.8 - Other disorders of electrolyte and fluid balance, not elsewhere classified Status: Acute Assessment and Plan: Potassium slightly low
== END 2020-12-29 23:00 | DRG 917 ==
LOC: ANHED 17:44 → ANHICU 17:54
PROVIDERS: Internal Medicine; Nurse Practitioner; Admitting Provider Hospitalist; Emergency Provider Emergency Medicine; Visit Provider Internal Medicine
DX: T50.912A Poisoning by multiple unspecified drugs, medicaments and biological substances, intentional self-harm, initial encounter (principal); J96.00 Acute respiratory failure, unspecified whether with hypoxia or hypercapnia; G92 Toxic encephalopathy; J69.0 Pneumonitis due to inhalation of food and vomit; K92.2 Gastrointestinal hemorrhage, unspecified; Z20.822 Contact with and (suspected) exposure to COVID-19; F19.10 Other psychoactive substance abuse, uncomplicated; F41.8 Other specified anxiety disorders; M54.9 Dorsalgia, unspecified; G89.29 Other chronic pain; F17.210 Nicotine dependence, cigarettes, uncomplicated; E87.6 Hypokalemia; Z79.899 Other long term (current) drug therapy
CPT/HCPCS: 31500; 36415; 36600; 70450; 71045; 80053; 80307; 81001; 82140; 82375; 82550; 82805; 83050; 83605; 83735; 83921; 84443; 84484; 85014; 85018; 85025; 85027; 87070; 87077; 87086; 87185; 87205; 87426; 93005; 94002; 94003; 96361; 96365; 96366; 99291; A9270; C9113; C9803; J0295; J0330; J1650; J2250; J2704; J7030